=== PATIENT | male | born 1960 | race Caucasian/White ===

== ENCOUNTER 2019-02-28 07:01 | Emergency (ER) | payer BC ==
--- NOTE | 2019-02-28 07:11 | UC ---
Respiratory Complaint HPI - HPI Summary HPI Summary: Patient is a 58 year old male, who present today to the urgent care with cough for past 20 days. Persistent productive cough that waxes and wanes. No sore throat Associated symptoms: Myalgias and fatigue, ear ache and head congestion. sick contacts : Patient's has similar symptoms, grandson had RSV prior to symptoms Denies any fever, chest pain or shortness of breath . Denies any abdominal pain , nausea or vomiting , diarrhea or constipation. Patient tried Mucinex and NyQuil and found likely to be helpful. Took it last night. - History of Current Complaint Stated Complaint: COUGH Time Seen by Provider: 02/28/19 07:10 Hx Obtained From: Patient - Allergies/Home Medications Allergies/Adverse Reactions: Allergies Allergy/AdvReac Type Severity Reaction Status Date / Time No Known Allergies Allergy Verified 02/28/19 07:14 Home Medications: Home Medications Atorvastatin* [Lipitor*] 20 mg PO DAILY 02/28/19 [History Confirmed 02/28/19] Vitamin THERAPEUTIC TAB* [Theragran TAB*] 1 tab PO DAILY 02/28/19 [History Confirmed 02/28/19] PMH/Surg Hx/FS Hx/Imm Hx - Additional Past Medical History Additional PMH: Past Medical History : Hyperlipidemia Past Surgical History: Bilateral inguinal hernia surgery in 2013 Family History : non contributory Social History : Daily glass of wine , non smoker, no drug use. Previously Healthy: Yes - Surgical History Surgical History: None - Family History Known Family History: Positive: Non-Contributory - Social History Substance Use Type: None Review of Systems All Other Systems Reviewed And Are Negative: Yes Constitutional: Positive: Fatigue Skin: Positive: Negative Eyes: Positive: Negative ENT: Positive: Ear Ache. Negative: Sore Throat Respiratory: Positive: Cough - Productive. Negative: Shortness Of Breath Cardiovascular: Positive: Negative. Negative: Chest Pain Gastrointestinal: Positive: Negative Genitourinary: Positive: Negative Motor: Positive: Negative Neurovascular: Positive: Negative Musculoskeletal: Positive: Negative Neurological: Positive: Negative Psychological: Positive: Negative Is Patient Immunocompromised?: No Physical Exam - Summary Physical Exam Summary: Physical Exam: Const: Appears well. No signs of apparent distress present. Alert and oriented x 3. Musculo: Walks with a normal gait. Head/Face: Atraumatic, normocephalic on inspection. Eyes: EOMI and PERRLA in both eyes. Conjunctivae clear. No discharge noted ENT: Hearing normal, TM normal appearing bilaterally, non bulging , non erythematous . No tenderness to palpation on maxillary and frontal sinus. No significant pharyngeal erythema or exudates . Uvula is midline. No cervical or submandibular lymphadenopathy noted. Respiratory: Respirations are unlabored. Lungs clear to auscultation bilaterally, no wheezing , rhonchi or rales noted . CVS: Regular rate and Rhythm, S1S2 normal , no murmurs identified. Extremities: Peripheral circulation is grossly normal. Pulses 2+ Abdomen : Soft non tender , nondistended , Bowel sounds present . No guarding , rebound tenderness or rigidity noted. Skin: No lesions or rash located on the upper extremities or on the lower extremities. Neuro: Cranial nerves II to XII intact, motor and sensory intact. DTR Intact bilaterally. Mood is normal. Affect is normal. Triage Information Reviewed: Yes Vital Signs Reviewed: Yes Respiratory Course/Dx - Course Course Of Treatment: During the visit today, we discussed the findings consistent with atypical pneumonia and further plan and treated with antibiotics. I will prescribe the medication to the pharmacy . Patient expressed understanding . - Differential Dx/Diagnosis Provider Diagnosis: Atypical pneumonia Discharge ED - Sign-Out/Discharge Documenting (check all that apply): Patient Departure All imaging exams completed and their final reports reviewed: No Studies - Discharge Plan Condition: Stable Disposition: HOME Prescriptions: Azithromyxin BALJEET (NF) [Z-Baljeet (Zithromax) 250 mg tabs #6] 2 tab PO .TODAY, THEN 1 DAILY #6 tab Benzonatate CAP* [Tessalon 100 MG CAP*] 100 mg PO TID PRN 10 Days #30 cap PRN Reason: Cough Patient Education Materials: Pneumonia (ED) Referrals: Torsten Mayorga MD [Primary Care Provider] - 1 Week Additional Instructions: Please start taking the medication as prescribed to the pharmacy . You can take NyQuil as needed at bedtime. Ibuprofen or Tylenol if you have fever. Follow up with your primary care doctor in 1 week if needed. Your blood pressure slightly high in Urgent care today , plan follow up with PCP for better control Return to Urgent care / ER if symptoms get worse. - Billing Disposition and Condition Condition: STABLE Disposition: Home
[2019-02-28 07:19] VITALS: BP 141/88
== END 2019-02-28 07:38 | disposition home or self-care (01) ==
LOC: UCCORT 07:01
DX: J18.9 Pneumonia, unspecified organism (principal); E78.5 Hyperlipidemia, unspecified; H92.09 Otalgia, unspecified ear; M79.10 Myalgia, unspecified site; R09.89 Other specified symptoms and signs involving the circulatory and respiratory systems; Z79.899 Other long term (current) drug therapy
CPT/HCPCS: 99202; G0463